=== PATIENT | male | born 1995 | race Caucasian/White ===

== ENCOUNTER 2024-05-30 11:08 | Emergency (ER) | payer MEDICAID ==
[~2024-05-30] VITALS: Ht 167.6 cm; Wt 81.8 kg
[~2024-05-30 11:08] MED LIST: CARAFATE 1GM1 G PO; FLOMAX 0.40.4 MG/CAP PO; NAPROSYN500 MG PO; NO HOME MEDICATIONS; PERCOCET 325 MG1 TA2 PO; PRIL40 PO; ROBAXIN 50500 MG/TAB PO; TAMIFLU 75MG75 MG PO; ZOFRAN ODT8 MG PO
[2024-05-30 11:13] VITALS: TEMP 98.4
[2024-05-30] MEDS ORDERED: Ondansetron 4 MG/2 ML VIAL IV ONE (11:30)
[2024-05-30] MEDS ORDERED: NS 1,000 ML IV ONE (11:30)
[2024-05-30] MEDS ORDERED: Ketorolac 30 MG/ML VIAL IV ONE (11:30)
[2024-05-30 11:46] LABS: COLLECTION METHOD CLEAN CATCH
[2024-05-30 11:51] LABS: BASO % 0.6 % (0.0-2.0); EOS # 0.1 K/mm3 (0.0-0.7); EOS % 1.2 % (0.0-4.0); GRAN % 58.9 % (42.2-75.2); HEMATOCRIT 48.4 % (42.0-52.0); HEMOGLOBIN 16.7 g/dl (13.5-18.0); LYMPH # 1.6 K/mm3 (1.2-3.4); LYMPH % 30.5 % (20.0-51.0); MEAN CELL VOLUME 87 fl (80.0-100.0); MEAN CORPUSCULAR HEMOGLOBIN 30 pg (27-31); MEAN CORPUSCULAR HGB CONC 35 g/dl (33.0-37.0); MEAN PLATELET VOLUME 9.7 fl (7.4-10.4); MONO # 0.5 K/mm3 (0.1-0.6); MONO % 8.8 % (1.7-9.3); PLATELET COUNT 150 K/mm3 (130-400); RED BLOOD COUNT 5.55 M/mm3 (4.20-5.60); REDCELL DISTRIBUTION WIDTH-CV 12.8 % (11.5-14.5)
[2024-05-30 11:57] LABS: PH 7.5 (5.0-8.5); URINE APPEARANCE CLEAR (CLEAR/HAZY); URINE BLOOD NEGATIVE (NEGATIVE); URINE COLOR YELLOW (YELLOW); URINE GLUCOSE NEGATIVE (NEGATIVE); URINE KETONE NEGATIVE (NEGATIVE); URINE NITRATE NEGATIVE (NEGATIVE); URINE PROTEIN(semi-quant) 1+ (NEGATIVE); URINE UROBILINOGEN 0.2 E.U/dL (0.2-1.0)
[2024-05-30 12:14] LABS: ALBUMIN 5.5 g/dL (3.5-5.0); BILIRUBIN,TOTAL 1.1 mg/dL (0.2-1.2); CALCIUM 9.8 mg/dL (8.4-10.2); CREATININE, serum 1.04 mg/dL (0.72-1.25); POTASSIUM 4.3 mEq/L (3.5-4.5); TOTAL PROTEIN 8.4 g/dl (6.2-8.1)
[2024-05-30] MEDS ORDERED: Iohexol 300 - 100 ML VIAL IV ONE (13:42)
[2024-05-30] MEDS ORDERED: NS 100 ML IV SCH (13:43)
[2024-05-30 14:46] VITALS: BP 141/99; PULSE 87
== END 2024-05-30 14:48 | disposition home or self-care (01) ==
LOC: COL.ER 11:08
PROVIDERS: Physician Assistant
DX: M54.50 Low back pain, unspecified (principal); M40.205 Unspecified kyphosis, thoracolumbar region; F17.210 Nicotine dependence, cigarettes, uncomplicated
CPT/HCPCS: J1885; J2405; J7030; Q9967